=== PATIENT | male | born 1990 | race American Indian/Alaskan Native ===

== ENCOUNTER 2016-08-17 06:33 | Emergency (ER) | payer SELFPAY ==
[2016-08-17 07:09] VITALS: BP 155/100
--- NOTE | 2016-08-17 07:46 | Emergency Department Report ---
HPI - General Chief Complaint: Sore Throat Time Seen by Provider: 08/17/16 07:24 - [facility] HPI: Patient is a 25-year-old male presents to ED complaining of mild throat pain that began one week ago. Patient states he is getting over cold. Patient describes the pain as intermittent, throbbing in nature 4-10 intensity. he states he had not taken any medication. Patient denies fevers/chills/nausea/vomiting/abdominal pain/headaches/dizziness ED Past Medical Hx - Past Medical History Previous Medical History?: Yes Additional medical history: bronchitis - Surgical History Past Surgical History?: No - Social History Smoking Status: Current Every Day Smoker Substance Use Type: Alcohol, Non Opiate Pain - Medications Home Medications: Home Medications Medication Instructions Recorded Confirmed Last Taken Type Acetamin/Codeine 120-12Mg/5 ml 5 ml PO TID PRN #4 oz 08/07/13 Unknown Rx [Tylenol/Codeine 120-12 mg/5 ml] Lidocaine Viscous 2% [Xylocaine 10 ml MM Q3H PRN #240 ml 08/07/13 Unknown Rx Viscous 2%] ED Review of Systems ROS: Stated complaint: DIFFICULTY IN BREATHING, SORE THROAT Other details as noted in HPI Constitutional: denies: chills, fever Eyes: denies: eye pain, eye discharge, vision change ENT: throat pain. denies: ear pain, dental pain, hearing loss, congestion Respiratory: denies: cough, shortness of breath, wheezing Cardiovascular: denies: chest pain, palpitations Endocrine: no symptoms reported Gastrointestinal: denies: abdominal pain, nausea, diarrhea Genitourinary: denies: urgency, dysuria Musculoskeletal: denies: back pain, joint swelling, arthralgia Skin: denies: rash, lesions Neurological: denies: headache, weakness, paresthesias Psychiatric: denies: anxiety, depression Hematological/Lymphatic: denies: easy bleeding, easy bruising Physical Exam - Physical Exam Vital Signs: Vital Signs 08/17/16 07:06 Temperature 98.5 F Pulse Rate 62 Respiratory 18 Rate Blood Pressure 155/100 O2 Sat by Pulse 100 Oximetry Physical Exam: GENERAL: Alert and oriented x3, no apparent distress, Normal Gait, atraumatic. HEAD: Head is normocephalic and a-traumatic. EYES: Extra ocular muscles are intact. Pupils are equal, round, and reactive to light and accommodation. EARS: symetrical, atraumatic, non tender, ear canal clear and moderate cerumen, tympanic membrance non inflamed. gross auditory nml bilaterally. NOSE: Nose symetrical, Nontender,Nares appeared normal. MOUTH:Mouth is well hydrated and without lesions. Tonsils nonerythematous or swollen, Uvula midline, Tongue not elevated. Mucous membranes are moist. Posterior pharynx clear, no exudate or lesions. Patent airways. NECK: Supple. Non edematous, No carotid bruits. No lymphadenopathy or thyromegaly. No C-spine tenderness LUNGS: Symetrical with respiration, No wheezing, no rales or crackles, CTAB. HEART: S1, S2 present, regular rate and rhythm without murmur, no rubs, no gallops. ABDOMEN: No organomegaly was noted,Positive bowel sounds, soft, and non- distended. . Nontender to palpation on all Quadrants, NO CVA tenderness. SKIN: Warm and dry, No lesions, No ulceration or induration present. ED Course Vital Signs 08/17/16 07:06 Temperature 98.5 F Pulse Rate 62 Respiratory 18 Rate Blood Pressure 155/100 O2 Sat by Pulse 100 Oximetry ED Medical Decision Making - Medical Decision Making 25-year-old male presents with Pharyngitis. Patient does not appear ill. Vital signs are normal. Discussing elevated blood pressure in the ED. Discussed to follow up with primary care physician for investigation of true high blood pressure. Constipation to Follow-up with primary care doctor. Follow-up for increased blood pressure. If symptoms worsen or new symptoms arise return to ED. Otherwise follow-up with primary care physician. Discussed with patient Take [id number] symptomatic relief such as Tylenol , lozenges Patient understands all dialysis caused and agrees to follow-up. Critical care attestation.: If time is entered above; I have spent that time in minutes in the direct care of this critically ill patient, excluding procedure time. ED Disposition Clinical Impression: Common cold Pharyngitis Qualifiers: Pharyngitis/tonsillitis etiology: unspecified etiology Qualified Code(s): J02.9 - Acute pharyngitis, unspecified Disposition: DISCHARGED TO HOME OR SELFCARE Is pt being admited?: No Does the pt Need Aspirin: No Condition: Stable Instructions: Pharyngitis (ED), Cold Symptoms (ED) Additional Instructions: Follow-up she primary care doctor. Follow-up for increased blood pressure. If symptoms worsen or new symptoms arise return to ED. Otherwise follow-up with primary care physician. Take [id number] symptomatic relief such as Tylenol, lozenges, Referrals: PRIMARY CARE, [Primary Care Provider] - 3-5 Days OLIVA BARROSO MD [Referring] - 3-5 Days AARON YOUNG MD [Referring] - 3-5 Days [facility] [Outside] - 3-[address] [facility] [Outside] - 3-5 Days Forms: Accompanied Note, Work/School Release Form(ED) Time of Disposition: 07:47
[2016-08-17] MEDS ORDERED: DELTASONE PO ONE (07:50)
== END 2016-08-17 08:13 | disposition home or self-care (01) ==
LOC: ED 06:33
DX: J02.9 Acute pharyngitis, unspecified (principal); F17.200 Nicotine dependence, unspecified, uncomplicated
CPT/HCPCS: 99282; J7512